=== PATIENT | female | born 1965 ===

== ENCOUNTER 2017-06-03 15:13 | Emergency (ER) | payer OTHER ==
[2017-06-03 15:17] VITALS: TEMP 98.1
--- NOTE | 2017-06-03 16:09 | C.PDOC ---
History Of Present Illness 51 year old female presents to the ED c/o chest congestion and urinary symptoms. Patient states the chest congestion has been happening for approximately 3 weeks associated with a fever that has resolved. She also states feeling a burning sensation while urinating that started yesterday. Patient denies abdominal pain, back pain, nausea, vomit. Time Seen by Provider: 06/03/17 15:42 Chief Complaint (Nursing): Cough, Cold, Congestion History Per: Patient History/Exam Limitations: no limitations Onset/Duration Of Symptoms: Days Current Symptoms Are (Timing): Still Present Sick Contacts (Context): None Associated Symptoms: denies: Fever, Cough, Sinus Drainage, Nausea, Diarrhea Recent travel outside of the [place]: No Additional History Per: Patient Past Medical History Reviewed: Historical Data, Nursing Documentation, Vital Signs Vital Signs: Last Vital Signs Temp 98.1 F 06/03/17 15:15 Pulse 98 H 06/03/17 16:56 Resp 16 06/03/17 16:56 BP 148/78 06/03/17 16:56 Pulse Ox 96 06/03/17 16:56 - Medical History PMH: HTN Denies: Deep Vein Thrombosis, Pulmonary Embolism Surgical History: Hernia Repair Family History: States: Unknown Family Hx - Social History Hx Alcohol Use: No Hx Substance Use: No Review Of Systems Constitutional: Negative for: Fever, Chills ENT: Positive for: Nose Congestion. Negative for: Nose Discharge, Throat Pain Cardiovascular: Negative for: Chest Pain Respiratory: Negative for: Cough, Shortness of Breath Gastrointestinal: Negative for: Nausea, Vomiting, Abdominal Pain Musculoskeletal: Negative for: Back Pain Neurological: Negative for: Weakness, Numbness Physical Exam - Physical Exam Appears: Non-toxic, No Acute Distress Skin: Normal Color, Warm, Dry Head: Atraumatic, Normacephalic Nose: No Discharge Oral Mucosa: Moist Throat: Normal, No Erythema, No Exudate Neck: Normal ROM, Supple Chest: Symmetrical Cardiovascular: Rhythm Regular, No Murmur Respiratory: Rhonchi (Scattered) Gastrointestinal/Abdominal: Soft, No Tenderness Back: No CVA Tenderness Extremity: Normal ROM Neurological/Psych: Oriented x3, Normal Speech, Normal Cognition ED Course And Treatment O2 Sat by Pulse Oximetry: 100 (On RA) Pulse Ox Interpretation: Normal - Radiology CXR: Interpreted by Me CXR Interpretation: Yes: No Acute Disease. No: Infiltrates Progress Note: On re-exam, the patient reports improvement of symptoms. Lungs are CTA, heart is RRR. ambulatory in the ED with steady gait. Abdomen is soft, non-tender and patient is tolerating PO well. Follow up with the medical doctor within 1-2 days, return if worsened. Medical Decision Making Medical Decision Making: Plan: * CXR ordered * UA ordered * Urine culture collected Disposition - Disposition Referrals: Bhupendra Sandoval MD [Staff Provider] - Disposition: HOME/ ROUTINE Disposition Time: 16:40 Condition: GOOD Additional Instructions: Follow up with the medical doctor within 1-2 days. return if worsened. Prescriptions: Benzonatate [Tessalon Perles] 100 mg PO TID PRN #21 sgl PRN Reason: Cough Loratadine [Claritin] 10 mg PO DAILY #10 tab Nitrofurantoin Macrocrystals [Macrobid] 1 cap PO BID #14 cap predniSONE [Prednisone] 20 mg PO BID #10 tab Instructions: Acute Bronchitis (ED) Forms: [employer] (Luxembourgish) Print Language: VINCENTIAN - Clinical Impression Clinical Impression: Bronchitis, Dysuria - PA / [employer] / Resident Statement MD/DO has reviewed & agrees with the documentation as recorded. - Scribe Statement The provider has reviewed the documentation as recorded by the Scribe Ash Anguiano All medical record entries made by the Radhaibsean were at my direction and personally dictated by me. I have reviewed the chart and agree that the record accurately reflects my personal performance of the history, physical exam, medical decision making, and the department course for this patient. I have also personally directed, reviewed, and agree with the discharge instructions and disposition.
[2017-06-03 16:19] LABS: RBC URINE 1 /hpf (0-3); URINE BACTERIA RARE (<OCC); URINE BILIRUBIN NEGATIVE (NEGATIVE); URINE BLOOD NEGATIVE (NEGATIVE); URINE COLOR Yellow (YELLOW); URINE GLUCOSE (UA) NORMAL (Normal); URINE KETONE NEGATIVE (NEGATIVE); URINE LEUKOCYTE ESTERASE NEG Leu/uL (Negative); URINE PROTEIN NEGATIVE (NEGATIVE); URINE UROBILINOGEN NORMAL mg/dL (0.2-1.0); WBC URINE 1 /hpf (0-5)
--- NOTE | 2017-06-03 16:25 | RAD ---
HISTORY: cough x 3 weeks COMPARISON: No prior. TECHNIQUE: Chest PA and lateral FINDINGS: LUNGS: No active pulmonary disease. PLEURA: No significant pleural effusion identified. No pneumothorax apparent. CARDIOVASCULAR: Normal. OSSEOUS STRUCTURES: No significant abnormalities. VISUALIZED UPPER ABDOMEN: Normal. OTHER FINDINGS: None. IMPRESSION: No active disease.
[2017-06-03 16:56] VITALS: BP 148/78; PULSE 98; RESP 16
[2017-06-03 21:47] VITALS: O2SAT 100
== END 2017-06-03 16:58 | disposition home or self-care (01) ==
LOC: C.ER 15:13
DX: J40 Bronchitis, not specified as acute or chronic (principal); R30.0 Dysuria; I10 Essential (primary) hypertension

== ENCOUNTER 2018-04-03 16:14 | Emergency (ER) | payer OTHER ==
[2018-04-03 16:32] VITALS: TEMP 98.1
--- NOTE | 2018-04-03 16:44 | C.PDOC ---
History Of Present Illness 52 y/o female presents to ED for evaluation of intermittent RLQ abdominal pain for the past year but worse for the past month. Notes pain is worse when walking and occasionally radiates down to her right leg. Pt reports having Abd & Pelvis CT scan, MRI, and Xrays done with normal findings as per patient. Findings demonstrate accumulation of stool, and gas. Pt stats she has been having normal bowel movements. Notes she had colonoscopy done a year ago which was also normal. Denies trying any pain meds at home. Denies constipation, n/v/d , blood in stool, urinary symptoms, back pain, or fever. Time Seen by Provider: 04/03/18 16:44 Chief Complaint (Nursing): Abdominal Pain History Per: Patient History/Exam Limitations: no limitations Onset/Duration Of Symptoms: Days Current Symptoms Are (Timing): Still Present Location Of Pain/Discomfort: RLQ Radiation Of Pain To:: Leg Quality Of Discomfort: "Pain" Associated Symptoms: denies: Nausea, Vomiting, Diarrhea, Loss Of Appetite, Back Pain, Chest Pain, Urinary Symptoms Exacerbating Factors: Walking Alleviating Factors: None Last Bowel Movement: Today Recent travel outside of the [place]: No Additional History Per: Patient Abnormal Vaginal Bleeding: No Past Medical History Reviewed: Historical Data, Nursing Documentation, Vital Signs Vital Signs: Last Vital Signs Temp 98.1 F 04/03/18 16:29 Pulse 83 04/03/18 20:08 Resp 16 04/03/18 20:08 BP 123/82 04/03/18 20:08 Pulse Ox 98 04/03/18 20:08 - Medical History PMH: HTN Denies: Deep Vein Thrombosis, Pulmonary Embolism Surgical History: Hernia Repair Family History: States: Unknown Family Hx - Social History Hx Alcohol Use: No Hx Substance Use: No - Immunization History Hx Tetanus Toxoid Vaccination: No Hx Influenza Vaccination: No Hx Pneumococcal Vaccination: No Review Of Systems Except As Marked, All Systems Reviewed And Found Negative. Constitutional: Negative for: Fever, Chills Cardiovascular: Negative for: Chest Pain Respiratory: Negative for: Shortness of Breath Gastrointestinal: Positive for: Abdominal Pain. Negative for: Nausea, Vomiting , Diarrhea, Constipation Genitourinary: Negative for: Dysuria, Frequency, Hematuria Musculoskeletal: Negative for: Back Pain Physical Exam - Physical Exam Appears: Non-toxic, No Acute Distress Skin: Normal Color, Warm, Dry Head: Atraumatic, Normacephalic Eye(s): bilateral: Normal Inspection Oral Mucosa: Moist Neck: Normal ROM, Supple Chest: Symmetrical Cardiovascular: Rhythm Regular, No Murmur Respiratory: Normal Breath Sounds, No Rales, No Rhonchi, No Wheezing Gastrointestinal/Abdominal: Bowel Sounds, Soft, No Tenderness, No Distention, No Guarding, No Rebound Extremity: Normal ROM Neurological/Psych: Oriented x3, Normal Speech ED Course And Treatment - Laboratory Results Result Diagrams: 04/03/18 18:13 04/03/18 18:13 O2 Sat by Pulse Oximetry: 99 (RA) Pulse Ox Interpretation: Normal Medical Decision Making Medical Decision Makin yr old female p/w chronic abdominal pain w/ largely benign abdominal exam. No RLQ pain on my exam. No alarming symptoms and or signs noted. Will seek labs and reassessment. Plan: Blood work Urinalysis Tylenol Maalox Mylicon 1954 labs unremarkable reamins w/ out RLQ pain on my re-exam no peritoneal signs vitals stable clear for d/c home Disposition - Disposition Referrals: [facility] [Outside] Ramo Jackson MD [Medical Doctor] - Disposition: HOME/ ROUTINE Disposition Time: 19:55 Condition: GOOD Instructions: Acute Abdomen (Belly Pain), Adult (DC) Forms: [employer] (Frisian) - Clinical Impression Clinical Impression: Abdominal pain - Scribe Statement The provider has reviewed the documentation as recorded by the Scribe KP All medical record entries made by the Scribe were at my direction and personally dictated by me. I have reviewed the chart and agree that the record accurately reflects my personal performance of the history, physical exam, medical decision making, and the department course for this patient. I have also personally directed, reviewed, and agree with the discharge instructions and disposition.
[2018-04-03 18:02] LABS: SQUAMOUS EPITHIAL < 1 /hpf (0-5); URINE BILIRUBIN NEGATIVE (NEGATIVE); URINE BLOOD NEGATIVE (NEGATIVE); URINE CLARITY Clear (Clear); URINE COLOR Yellow (YELLOW); URINE GLUCOSE (UA) NORMAL (Normal); URINE LEUKOCYTE ESTERASE NEG Leu/uL (Negative); URINE PROTEIN NEGATIVE (NEGATIVE); URINE UROBILINOGEN NORMAL mg/dL (0.2-1.0)
[2018-04-03 18:05] LABS: HCG,QUALITATIVE URINE NEGATIVE (NEGATIVE)
[2018-04-03] MEDS ORDERED: Simethicone 80 mg Chewtab PO ONE (18:18)
[2018-04-03] MEDS ORDERED: Aluminum Hydroxide/Magnesium Hydroxide Susp (30 mL) PO ONE (18:19)
[2018-04-03 18:21] LABS: BASO # 0.1 K/uL (0.0-0.2); BASO % 1.1 % (0.0-2.0); EOS # 0.2 K/uL (0.0-0.7); EOS % 2.6 % (0.0-4.0); HEMOGLOBIN 12.6 g/dL (11.0-16.0); LYMPH # 2.5 K/uL (1.0-4.3); MEAN CELL VOLUME 92.9 fL (81.0-99.0); MEAN CORPUSCULAR HEMOGLOBIN 30.9 pg (27.0-31.0); MEAN CORPUSCULAR HGB CONC 33.2 g/dL (33.0-37.0); MEAN PLATELET VOLUME 10.1 fL (7.2-11.7); MONO # 0.5 K/uL (0.0-0.8); MONO % 8.7 % (0.0-10.0); NEUT # 2.6 K/uL (1.8-7.0); NEUT % 44.6 % (50.0-75.0); RBC 4.07 Mil/uL (3.80-5.20); RED CELL DISTRIBUTION WIDTH 13.1 % (11.5-14.5); WHITE BLOOD COUNT 5.8 K/uL (4.8-10.8)
[2018-04-03 18:23] LABS: VENOUS BLOOD GAS BASE EXCESS 5.2 mmol/L (0.0-2.0); VENOUS BLOOD GAS PCO2 59 mmHg (40-60); VENOUS BLOOD GAS PO2 21 mm/Hg (30-55); VENOUS BLOOD PH 7.35 (7.32-7.43)
[2018-04-03] MEDS ORDERED: Aluminum Hydroxide/Magnesium Hydroxide Susp (30 mL) ONE (18:24)
[2018-04-03 18:36] LABS: ALB/GLOB RATIO 1.3 (1.0-2.1); ALBUMIN 4.2 g/dL (3.5-5.0); BLOOD UREA NITROGEN 18 mg/dL (7-17); CALCIUM 9.5 mg/dl (8.6-10.4); GFR NON-AFRICAN AMERICAN > 60; LIPASE 90 U/L (23-300)
[2018-04-03 18:39] LABS: ALT/SGPT 28 U/L (9-52); AST/SGOT 32 U/L (14-36)
[2018-04-03 20:09] VITALS: BP 123/82; PULSE 83; RESP 16
[2018-04-04 01:45] VITALS: O2SAT 99
== END 2018-04-03 20:08 | disposition home or self-care (01) ==
LOC: C.ER 16:14
DX: R10.31 Right lower quadrant pain (principal)

== ENCOUNTER 2018-07-29 09:43 | Outpatient (CLI) | payer SELFPAY | END 2018-07-29 09:44 | disposition home or self-care (01) | LOC: C.CTH 09:43 | DX: R10.31 Right lower quadrant pain (principal) ==

== ENCOUNTER 2018-09-15 13:59 | Outpatient (CLI) | payer SELFPAY | END 2018-09-15 14:00 | disposition home or self-care (01) | LOC: C.USIC 13:59 ==